=== PATIENT | male | born 1975 | race Caucasian/White ===

== ENCOUNTER 2017-12-29 10:25 | Emergency (ER) | payer MEDICAID ==
[2017-12-29] MEDS: IBUPROFEN 600 MG TAB PO (14:32)
[2017-12-29] MEDS: HYDROCODONE/APAP (5/325) TAB PO (14:34)
== END 2017-12-29 15:56 | disposition home or self-care (01) ==
LOC: FTE 10:25
DX: S89.92XA Unspecified injury of left lower leg, initial encounter (principal); I10 Essential (primary) hypertension; E66.9 Obesity, unspecified; V49.40XA Driver injured in collision with unspecified motor vehicles in traffic accident, initial encounter; Z95.1 Presence of aortocoronary bypass graft; Z79.82 Long term (current) use of aspirin
CPT/HCPCS: 72170; 73550; 99284-25

== ENCOUNTER 2018-08-01 23:57 | Emergency (ER) | payer MEDICAID | END 2018-08-02 02:41 | disposition home or self-care (01) | LOC: FTE 23:57 | DX: M25.562 Pain in left knee (principal); I10 Essential (primary) hypertension; E66.9 Obesity, unspecified; Z68.29 Body mass index [BMI] 29.0-29.9, adult; Z79.82 Long term (current) use of aspirin | CPT/HCPCS: 73562; 99283-25 ==